=== PATIENT | male | born 2005 | race Caucasian/White ===

== ENCOUNTER 2024-03-29 12:30 | Emergency (ER) | payer OTHER ==
[~2024-03-29] VITALS: Ht 182.9 cm; Wt 111.6 kg
[2024-03-29 15:23] VITALS: BP 136/88; TEMP 97.4; O2SAT 99
[2024-03-29] MEDS: ACETAMINOPHEN TAB 650MG DOSE (2X325MG) PO ONE (15:23)
== END 2024-03-29 15:31 | disposition home or self-care (01) ==
LOC: M ED 12:30
DX: S80.11XA Contusion of right lower leg, initial encounter (principal); V13.9XXA Unspecified pedal cyclist injured in collision with car, pick-up truck or van in traffic accident, initial encounter; Y92.410 Unspecified street and highway as the place of occurrence of the external cause; Y93.9 Activity, unspecified; Y99.9 Unspecified external cause status; F17.290 Nicotine dependence, other tobacco product, uncomplicated